=== PATIENT | male | born 1960 | race Two or more races ===

== ENCOUNTER 2020-08-29 20:08 | Emergency (ER) | payer OTHER ==
[~2020-08-29] VITALS: Ht 180.3 cm; Wt 81.6 kg
[~2020-08-29 20:08] MED LIST: AMLO10TA13 PO; ASPI81CH43 PO; CLOP75TA28 PO; LOSA-39 PO; METF-370 PO; SIMV-8 PO
[2020-08-29] MEDS ORDERED: ONDANSETRON HCL 4 MG/2 ML VIAL IV ONE (21:00)
[2020-08-29] MEDS ORDERED: SODIUM CHLORIDE 0.9% 500 ML IV ONE (21:00)
[2020-08-29] MEDS ORDERED: KETOROLAC TROMETH 30 MG/ML 1ML VIAL IV ONE (21:00)
[2020-08-29 22:28] LABS: Basophils # (auto) 0 10 ^3/uL (0-0.2); Basophils % (auto) 0.3 % (0.0-2.0); Eosinophils # (auto) 0 10 ^3/uL (0-0.8); Eosinophils % (auto) 0.6 % (0.0-7.0); Hemoglobin 15.1 g/dL (13.5-17.5); Lymphocytes # (auto) 1.2 10 ^3/uL (0.4-5.4); Lymphocytes % (auto) 15.6 % (10.0-50.0); Mean Corpuscular Hemoglobin 31.4 pg (28.0-32.0); Mean Corpuscular Hgb Conc. 35.2 g/dL (32.0-36.0); Mean Corpuscular Volume 89.4 fL (80.0-100.0); Monocytes # (auto) 0.6 10 ^3/uL (0-1.3); Monocytes % (auto) 7.6 % (0.0-12.0); Neutrophils # (auto) 5.9 10 ^3/uL (1.6-8.6); Neutrophils % (auto) 75.9 % (37.0-80.0); Nucleated Red Blood Cells % 0.1 %; Platelet Count (auto) 158 10^3/uL (140-450); Red Blood Cells 4.81 10^6/uL (4.5-5.90); Red Cell Distribution Width 13.6 % (11.8-14.3); White Blood Cell 7.8 10^3/uL (4.4-10.8)
[2020-08-29 22:45] LABS: Albumin 3.8 g/dL (3.4-5.0); Anion Gap 8 (5-15); Blood Urea Nitrogen 22 mg/dL (7-18); Calcium 9.1 mg/dL (8.5-10.1); Carbon Dioxide 24 mmol/L (21-32); Chloride 103 mmol/L (98-107); Glucose 159 mg/dL (74-106); Magnesium 2.2 mg/dL (1.6-2.6); Potassium 3.2 mmol/L (3.5-5.1); Sodium 135 mmol/L (136-145)
[2020-08-29 22:53] LABS: Alanine Aminotransferase 17 U/L (16-61); Alkaline Phosphatase 67 U/L (45-117); Aspartate Aminotransferase 15 U/L (15-37); BUN/Creatinine Ratio 19.1; Bilirubin, Total 0.5 mg/dL (0.2-1.0); CRP High Sensitivity 5.06 mg/dL (< 0.3); GFR African American 84 mL/min; GFR Non-African American 69 mL/min; Lactate Dehydrogenase 188 U/L (87-241); Total Protein 7.9 g/dL (6.4-8.2)
[2020-08-30] MEDS ORDERED: POTASSIUM EFFERVESENT TAB 25 MEQ PO ONE (02:45)
[2020-08-30 03:00] VITALS: BP 111/48
[2020-08-30 03:03] LABS: Urine Bacteria FEW /hpf (None Seen); Urine Blood Negative /uL (Negative); Urine Mucus FEW (None Seen); Urine Specific Gravity 1.034 (1.001-1.035); Urine WBC 1 /hpf (0 - 3)
== END 2020-08-30 02:49 | disposition home or self-care (01) ==
LOC: EDBD 20:08 → ER 20:11
DX: U07.1 COVID-19 (principal); B34.9 Viral infection, unspecified
CPT/HCPCS: 36415; 36600; 71045; 80053; 81001; 82728; 82805; 83605; 83615; 83735; 83880; 84484; 85025; 85379; 86141; 87040; 87426; 93005; 96361; 96374; 96375; 99285; J1885; J2405

== ENCOUNTER 2024-07-26 20:40 | Emergency (ER) | payer MEDICAID, OTHER ==
[~2024-07-26] VITALS: Ht 177.8 cm; Wt 93.2 kg
[~2024-07-26 20:40] MED LIST changes: -AMLO10TA13 PO; +AMLO1TAB23 PO; -LOSA-39 PO; +LOSA-535 PO; -SIMV-8 PO; +SIMV20TA20 PO
[2024-07-26 20:58] VITALS: BP 155/89; PULSE 67; RESP 18; TEMP 97.4; O2SAT 99
[2024-07-27] MEDS: HYDROcodone-ACET 5/325MG TAB PO ONE (00:01)
[2024-07-27] MEDS: ONDANSETRON ODT 4 MG TAB PO ONE (00:09)
== END 2024-07-27 00:26 | disposition home or self-care (01) ==
LOC: ER 20:40
DX: K91.840 Postprocedural hemorrhage of a digestive system organ or structure following a digestive system procedure (principal); I10 Essential (primary) hypertension; E11.9 Type 2 diabetes mellitus without complications; E78.5 Hyperlipidemia, unspecified; I25.2 Old myocardial infarction; Z98.890 Other specified postprocedural states; Z95.0 Presence of cardiac pacemaker; Z79.899 Other long term (current) drug therapy; Z79.84 Long term (current) use of oral hypoglycemic drugs; Z79.82 Long term (current) use of aspirin
CPT/HCPCS: 99283; Q0162